=== PATIENT | male | born 1955 | race Two or more races ===

== ENCOUNTER 2023-06-13 01:18 | Emergency (ER) | payer MEDICARE, MEDICAID ==
[~2023-06-13] VITALS: Ht 167.6 cm; Wt 78.5 kg
[2023-06-13 02:35] VITALS: PULSE 96; RESP 16; O2SAT 95
[2023-06-13] MEDS ORDERED: MORPHINE SULFATE 4 MG/ML SYR/VIAL IV ONE (03:00)
[2023-06-13] MEDS ORDERED: ONDANSETRON HCL 4 MG/2 ML VIAL IV ONE (03:00)
[2023-06-13 04:00] VITALS: BP 100/65; PULSE 96; RESP 16; O2SAT 95
== END 2023-06-13 04:50 | disposition home or self-care (01) ==
LOC: ER 01:18
DX: R33.9 Retention of urine, unspecified (principal); I10 Essential (primary) hypertension; E11.9 Type 2 diabetes mellitus without complications; Z91.040 Latex allergy status
CPT/HCPCS: 51702; 96374; 96375; 99285; J2270; J2405

== ENCOUNTER 2023-11-07 19:45 | Inpatient (IN) | payer MEDICARE, MEDICAID ==
[~2023-11-07] VITALS: Ht 167.6 cm; Wt 109.0 kg
[2023-11-07 04:23] VITALS: BP 165/74; PULSE 72; RESP 18; TEMP 98.1; O2SAT 95
[2023-11-07 21:33] LABS: Basophils # (auto) 0 10 ^3/uL (0-0.2); Basophils % (auto) 0.4 % (0.0-2.0); Eosinophils # (auto) 0.1 10 ^3/uL (0-0.8); Eosinophils % (auto) 2.9 % (0.0-7.0); Hematocrit 22.6 % (41.0-53.0); Hemoglobin 7.1 g/dL (13.5-17.5); Lymphocytes # (auto) 0.8 10 ^3/uL (0.4-5.4); Lymphocytes % (auto) 21.8 % (10.0-50.0); Mean Corpuscular Hemoglobin 23.5 pg (28.0-32.0); Mean Corpuscular Hgb Conc. 31.2 g/dL (32.0-36.0); Mean Corpuscular Volume 75.4 fL (80.0-100.0); Monocytes # (auto) 0.5 10 ^3/uL (0-1.3); Monocytes % (auto) 12.9 % (0.0-12.0); Neutrophils # (auto) 2.2 10 ^3/uL (1.6-8.6); Nucleated Red Blood Cells % 0.1 %; Red Cell Distribution Width 16.3 % (11.8-14.3); White Blood Cell 3.5 10^3/uL (4.4-10.8)
[2023-11-07 21:46] LABS: Prothrombin Time 10.6 sec (9.3-11.8)
[2023-11-07 21:47] LABS: Alanine Aminotransferase 24 U/L (7-40); Albumin 4.3 g/dL (3.2-4.8); Alkaline Phosphatase 103 U/L (46-116); Anion Gap 7 (5-15); Aspartate Aminotransferase 29 U/L (13-40); BUN/Creatinine Ratio 12.5 (10.0-20.0); Bilirubin, Total 0.4 mg/dL (0.2-1.0); Blood Urea Nitrogen 16 mg/dL (9-23); Calcium 9.1 mg/dL (8.5-10.1); Carbon Dioxide 24 mmol/L (20-30); Chloride 101 mmol/L (98-107); Glucose 135 mg/dL (74-106); Potassium 4.1 mmol/L (3.5-5.1); Sodium 132 mmol/L (136-145)
[2023-11-07 21:51] LABS: Hypochromia Moderate; Platelet Estimate Decreased
[2023-11-07 21:58] LABS: Lipase 47 U/L (12-53)
[2023-11-07 23:35] VITALS: PULSE 89; RESP 12; O2SAT 95
[2023-11-07 23:49] LABS: Ferritin 3.7 ng/mL (22-322); Folate (Folic Acid) 21.95 ng/mL (>5.38)
[2023-11-08] VITALS (16 sets, daily range): BP systolic 132–186; BP diastolic 56–91; PULSE 63–89; RESP 12–20; TEMP 97.7–98.7; O2SAT 96–100
[2023-11-08] MEDS ORDERED: ONDANSETRON HCL 4 MG/2 ML VIAL IV PRN
[2023-11-08] MEDS ORDERED: DEXTROSE (50%) 50ML SYRG IV PRN
[2023-11-08] MEDS ORDERED: ACETAMINOPHEN 325 MG TAB PO PRN
[2023-11-08] MEDS ORDERED: MORPHINE SULFATE INJ 2 MG/ml SYRG IV PRN (00:45)
[2023-11-08] MEDS ORDERED: NITROGLYCERIN 0.4 MG SL TAB SL PRN (00:45)
[2023-11-08] MEDS: SODIUM CHLORIDE 0.9% 1,000 ML IV SCH (01:05)
[2023-11-08] MEDS: DOCUSATE SOD 100 MG CAP PO PRN (01:05)
[2023-11-08] MEDS: HYDROcodone-ACET 5/325MG TAB PO PRN (01:05)
[2023-11-08] MEDS: cloNIDine HCL 0.1 MG TAB PO PRN (01:10)
[2023-11-08 04:20] LABS: Urine Bacteria None Seen /hpf (None Seen)
[2023-11-08] MEDS ORDERED: FINA5TAB4 PO (04:21)
[2023-11-08] MEDS ORDERED: HYDR-4798 PO (04:21)
[2023-11-08] MEDS ORDERED: DOCU-94 PO (04:21)
[2023-11-08] MEDS ORDERED: AZEL0.1S (04:21)
[2023-11-08] MEDS ORDERED: CETI10CH PO (04:21)
[2023-11-08] MEDS ORDERED: INSLANTI SC (04:21)
[2023-11-08] MEDS ORDERED: EMPA1TAB3 PO (04:21)
[2023-11-08] MEDS ORDERED: METO25TA93 PO (04:21)
[2023-11-08] MEDS ORDERED: TAMS0.4C36 PO (04:21)
[2023-11-08] MEDS ORDERED: CLON0.1T PO (04:21)
[2023-11-08] MEDS ORDERED: METF-370 PO (04:21)
[2023-11-08] MEDS ORDERED: ALPR0.5T7 PO (04:21)
[2023-11-08 04:26] LABS: Urine Blood TRACE /uL (Negative); Urine Clarity Clear (Clear); Urine Protein, UAD 1+ (Negative); Urine Specific Gravity 1.005 (1.001-1.035); Urine Urobilinogen Normal (Negative); Urine WBC 3 /hpf (0 - 3)
[2023-11-08 04:27] LABS: Urine Color Straw (Yellow)
[2023-11-08] MEDS: ACCU-CHEK COMFORT CURVE STRIP VI SCH (07:11)
[2023-11-08] MEDS: InsuLIN REG 1unit/0.01ml Soln (100units/ml) SC SCH ×2 (07:12→22:56)
[2023-11-08] MEDS: MULTIPLE VITAMIN TAB PO SCH (09:47)
[2023-11-08] MEDS: METOPROLOL TARTRATE 25 MG TAB PO SCH ×2 (09:48→23:06)
[2023-11-08] MEDS: amLODIPine BESYLATE 5 MG TAB PO SCH (09:48)
[2023-11-08 11:17] LABS: Basophils # (auto) 0 10 ^3/uL (0-0.2); Basophils % (auto) 0.4 % (0.0-2.0); Eosinophils # (auto) 0.1 10 ^3/uL (0-0.8); Eosinophils % (auto) 3.2 % (0.0-7.0); Hematocrit 25.8 % (41.0-53.0); Hemoglobin 8.3 g/dL (13.5-17.5); Lymphocytes # (auto) 0.5 10 ^3/uL (0.4-5.4); Lymphocytes % (auto) 16.7 % (10.0-50.0); Mean Corpuscular Hemoglobin 25.4 pg (28.0-32.0); Mean Corpuscular Hgb Conc. 32.4 g/dL (32.0-36.0); Mean Corpuscular Volume 78.6 fL (80.0-100.0); Monocytes # (auto) 0.4 10 ^3/uL (0-1.3); Monocytes % (auto) 14.6 % (0.0-12.0); Neutrophils % (auto) 65.1 % (37.0-80.0); Nucleated Red Blood Cells % 0.1 %; Red Blood Cells 3.28 10^6/uL (4.5-5.90); Red Cell Distribution Width 16.9 % (11.8-14.3); White Blood Cell 3.1 10^3/uL (4.4-10.8)
[2023-11-08 11:32] LABS: Alanine Aminotransferase 21 U/L (7-40); Albumin 3.9 g/dL (3.2-4.8); Alkaline Phosphatase 92 U/L (46-116); Anion Gap 7 (5-15); Aspartate Aminotransferase 38 U/L (13-40); BUN/Creatinine Ratio 16.7 (10.0-20.0); Blood Urea Nitrogen 20 mg/dL (9-23); Calcium 9.1 mg/dL (8.5-10.1); Carbon Dioxide 26 mmol/L (20-30); Chloride 103 mmol/L (98-107); Glucose 181 mg/dL (74-106); Potassium 4.3 mmol/L (3.5-5.1); Sodium 136 mmol/L (136-145)
[2023-11-08 11:33] LABS: Bilirubin, Total 0.7 mg/dL (0.2-1.0)
[2023-11-08] MEDS: METOPROLOL TARTRATE 50 MG TAB PO ONE (13:25)
[2023-11-08] MEDS: IRON SUCROSE COMPLEX 100 ML IV SCH (16:06)
[2023-11-09 01:00] VITALS: BP 185/80; PULSE 64; RESP 20; TEMP 98.3; O2SAT 95
[2023-11-09 05:00] VITALS: BP 143/80; PULSE 61; RESP 20; TEMP 97.9; O2SAT 94
[2023-11-09 06:35] LABS: Basophils # (auto) 0 10 ^3/uL (0-0.2); Basophils % (auto) 0.3 % (0.0-2.0); Hematocrit 29.8 % (41.0-53.0); Hemoglobin 9.6 g/dL (13.5-17.5); Lymphocytes # (auto) 0.8 10 ^3/uL (0.4-5.4); Mean Corpuscular Volume 78.1 fL (80.0-100.0); Monocytes # (auto) 0.6 10 ^3/uL (0-1.3); White Blood Cell 4.5 10^3/uL (4.4-10.8)
[2023-11-09 06:38] LABS: Eosinophils # (auto) 0.2 10 ^3/uL (0-0.8); Eosinophils % (auto) 3.4 % (0.0-7.0); Lymphocytes % (auto) 18.2 % (10.0-50.0); Mean Corpuscular Hemoglobin 25.2 pg (28.0-32.0); Mean Corpuscular Hgb Conc. 32.3 g/dL (32.0-36.0); Monocytes % (auto) 13.1 % (0.0-12.0); Neutrophils # (auto) 2.9 10 ^3/uL (1.6-8.6); Red Blood Cells 3.81 10^6/uL (4.5-5.90); Red Cell Distribution Width 17.3 % (11.8-14.3)
[2023-11-09 06:55] VITALS: PULSE 63
[2023-11-09 08:00] VITALS: PULSE 62; PULSE 63; RESP 18; O2SAT 97
[2023-11-09 08:14] VITALS: BP 155/72; PULSE 63; RESP 17; TEMP 98.1; O2SAT 91
[2023-11-09] MEDS: METOPROLOL TARTRATE 50 MG TAB PO SCH (09:47)
[2023-11-09 11:35] VITALS: BP 165/81; PULSE 64; RESP 16; TEMP 98.3; O2SAT 95
== END 2023-11-09 15:30 | disposition home or self-care (01) | DRG 809 ==
LOC: ER 19:45 → TELE-WESTW 11-08 00:36 → TELE 11-08 00:36 → TELE-WESTW 11-08 03:02
PROVIDERS: ADMIT Nurse Practitioner Family; ATTEND Family Medicine
PROC: 30233N1 Transfusion of Nonautologous Red Blood Cells into Peripheral Vein, Percutaneous Approach (ICD-10-PCS; principal; 2023-11-08)
DX: D61.818 Other pancytopenia (principal); E87.1 Hypo-osmolality and hyponatremia; I10 Essential (primary) hypertension; E11.9 Type 2 diabetes mellitus without complications; K76.0 Fatty (change of) liver, not elsewhere classified; Z83.3 Family history of diabetes mellitus; Z87.19 Personal history of other diseases of the digestive system; Z87.11 Personal history of peptic ulcer disease
CPT/HCPCS: 36415; 76700; 80053; 81001; 82607; 82728; 82746; 82962; 83540; 83550; 83615; 83690; 84484; 85025; 85045; 85610; 86850; 86900; 86901; 86920; G0378; J1756; J1815